=== PATIENT | female | born 1950 | race Caucasian/White ===

== ENCOUNTER 2018-11-20 20:02 | Inpatient (IN) ==
[2018-11-20] MEDS ORDERED: *HR* Adenosine 6 MG/2 ML VIAL IVP ONE (20:18)
[2018-11-20 20:39] LABS: Basophils # 0.1 K/mcL (0.0-0.2); Basophils % 0.7 %; Eosinophils # 0.4 K/mcL (0.0-0.6); Eosinophils % 4.8 %; Hematocrit 40.7 % (35.3-44.9); Hemoglobin 13.3 g/dL (11.5-15.4); Immature Granulocytes % 0.2 % (0-4); Lymphocytes # 2.6 K/mcL (0.6-4.6); Mean Corpuscular HGB Conc 32.7 g/dL (31.6-35.5); Mean Corpuscular Hemoglobin 29.3 pg (28.0-33.3); Mean Corpuscular Volume 89.6 fL (83.0-100.0); Monocytes # 0.5 K/mcL (0.0-1.3); Monocytes % 6.1 %; Platelet Count 302 K/mcL (140-400); Red Blood Count 4.54 M/mcL (3.82-4.97); Red Cell Distribution Width 12.9 % (11.5-14.5); Segmented Neutrophils % 58.2 %
[2018-11-20 20:46] LABS: Prothrombin Time 10.7 Seconds (9.4-12.1)
[2018-11-20 20:49] LABS: Activated Partial Thrombo Time 34.5 Seconds (26.0-36.0)
[2018-11-20 21:02] LABS: BUN/Creatinine Ratio 42 (6-26); Blood Urea Nitrogen 27 mg/dL (8-23); Calcium 9.8 mg/dL (8.6-10.3); Carbon Dioxide 25 mEq/L (23-29); Chloride 104 mEq/L (98-107); Glucose 189 mg/dL (70-105); Osmolality,Calculated 298 (280-300); Potassium 3.4 mEq/L (3.5-5.1); Sodium 139 mEq/L (136-145); Troponin I < 0.03 ng/mL (< 0.04); eGFR For Non-African Americans > 60 (> 60)
--- NOTE | 2018-11-20 21:08 | Emergency Department Note ---
Disposition Clinical Impression: New onset atrial fibrillation, Atrial fibrillation with RVR Disposition: Admitted As Inpatient Condition: Good Referrals: Lissette Palacio MD [Primary Care Provider] - Forms: ED Satisfaction Letter Time of Disposition: 21:51 Arrhythmia/Palpitations HPI - General Chief Complaint: ED Arrhythmia/Palpitations Stated Complaint: high bp elevated pulse Time Seen by Provider: 11/20/18 20:17 Source: EMS Limitations: no limitations - History of Present Illness HPI Narrative: Patient is a 68-year-old female presents to the emergency department with a chief complaint of palpitations. He reports that this evening she was sitting down at home after picking up some Gis[employer]'s patient states while sitting there she noticed that her heart started beating extremely rapidly. Patient states felt a little tightness in her chest when this was going on but denies specific chest pain. Patient reports she has no prior history of dysrhythmia or intrafibrillation before in the past. Pt Subjective Complaint: rapid heart beat - Related Data Home Medications Medication Instructions Recorded Confirmed Aspirin [Lo-Dose Aspirin EC] 81 mg PO DAILY 11/20/18 11/20/18 Atorvastatin Calcium [Lipitor] 20 mg PO HS 11/20/18 11/20/18 Metoprolol Succinate 25 mg PO QAM 11/20/18 11/20/18 Metoprolol Succinate [Toprol Xl] 12.5 mg PO QPM 11/20/18 11/20/18 Allergies Allergy/AdvReac Type Severity Reaction Status Date / Time itraconazole [From Sporanox] Allergy Rash Verified 11/20/18 20:07 All systems ED: reviewed and negative except as stated. Past Medical History - Past Medical History Attestation: Yes The following information was validated with the patient. Medical history: Reports: hyperlipidemia, hypertension Psychiatric history: Reports: anxiety, depression - Social History Smoking Status: Never smoker Smokeless Tobacco Status: No Alcohol use: Reports: none Drug use: Reports: none Physical Exam General: Conversant and pleasant interactive and nontoxic. Head: Normocephalic/atraumatic Eyes:PERRLA, EOMI, no conjunctivitis Nares: Without d/c. Ears: No erythema or d/c noted. Oralpharnyx: P&MMM noted, Neck: Supple, no JVD or SELF RISING FLOUR MIXER noted. Cardovascular: Irregularly irregular rhythm that is tachycardic without murmur, brisk capillary refill, no peripheral edema. Lungs: Clear to ascultation bilaterally, non-labored Abd: Soft nontender, Non Distended, no guarding, no rebound. : Defered Extremities: moves all extremities equally Neuro: AOx3, no obvious gross neuro deficit Psych: Normal Affect Derm: No rash noted - General Limitations: no limitations General appearance: alert Course Course Narrative: Patient's heart rate is much better controlled on the Cardizem drip Vital Signs O2 Sat by Pulse Oximetry 98 11/20/18 20:08 Temperature 98.9 F 11/20/18 20:32 Pulse Rate 99 11/20/18 20:40 Respiratory Rate 18 11/20/18 20:40 Blood Pressure 126/81 11/20/18 20:40 O2 Sat by Pulse Oximetry 97 11/20/18 20:40 Oxygen Delivery Oxygen Delivery Room Air Arrhythmia/Palpitations - Lab Data Result diagrams: 11/20/18 20:25 11/20/18 20:25 Lab Results 11/20/18 11/20/18 11/20/18 Range/Units 20:25 20:25 20:25 WBC 8.6 (4.3-11.1) K/mcL RBC 4.54 (3.82-4.97) M/mcL Hgb 13.3 (11.5-15.4) g/dL Hct 40.7 (35.3-44.9) % MCV 89.6 (83.0-100.0) fL MCH 29.3 (28.0-33.3) pg MCHC 32.7 (31.6-35.5) g/dL RDW 12.9 (11.5-14.5) % Plt Count 302 (140-400) K/mcL MPV 9.0 L (9.4-12.4) fL Immature Gran % 0.2 (0-4) % Seg Neutrophils % 58.2 % Lymphocytes % 30.0 % Monocytes % 6.1 % Eosinophils % 4.8 % Basophils % 0.7 % Neutrophils # 5.0 (1.6-8.9) K/mcL Lymphocytes # 2.6 (0.6-4.6) K/mcL Monocytes # 0.5 (0.0-1.3) K/mcL Eosinophils # 0.4 (0.0-0.6) K/mcL Basophils # 0.1 (0.0-0.2) K/mcL PT 10.7 (9.4-12.1) Seconds INR 1.0 APTT 34.5 (26.0-36.0) Seconds Sodium 139 (136-145) mEq/L Potassium 3.4 L (3.5-5.1) mEq/L Chloride 104 (98-107) mEq/L Carbon Dioxide 25 (23-29) mEq/L BUN 27 H (8-23) mg/dL Creatinine 0.65 (0.60-1.20) mg/dL Est GFR ( Amer) > 60 (> 60) Est GFR (Non-Af Amer) > 60 (> 60) BUN/Creatinine Ratio 42 H (6-26) Glucose 189 H (70-105) mg/dL Calculated Osmolality 298 (280-300) Calcium 9.8 (8.6-10.3) mg/dL Magnesium 2.0 (1.6-2.6) mg/dL Troponin I < 0.03 (< 0.04) ng/mL TSH 0.937 (0.340-5.600) mcIU/mL Critical Care Time Critical Care Time: Yes Total Critical Care Time: 30 Attestation: The high probability of a clinically significant, sudden or life threatening deterioration of the cardiovascular system(s) required my full and direct attention, intervention and personal management. The aggregate critical care time was 30 minutes. This time is in addition to time spent performing reported procedures but includes the following: Management of heart rate with Cardizem drip
[2018-11-20 21:16] LABS: Thyroid Stimulating Hormone 0.937 mcIU/mL (0.340-5.600)
--- NOTE | 2018-11-20 22:58 | Internal Med History&Physical ---
Date of Encounter: 11/20/18 Time of Encounter: 22:58 Internal Medicine - H&P: HPI Chief complaint: Palpitations Admitted From: Home Plans for Post Hospital Care: Home History of present illness: Ms. Grant is a 68 year old female patient with a history of hypertension who presented to the ER with complaints of palpitations that began suddenly when she was at [facility] And reports that she has had episodes of palpitations intermittently recently but these usually subsided quickly. Her current episode did not subside and so she came to the ER. She denies any dizziness or lightheadedness. No chest pain. No fevers or chills reported recently. No prior cardiac history. No history of diabetes or kidney disease. No prior history of any heart rhythm problems. Past Med Surg Social Fam HX - Past Medical History Attestation: Yes The following information was validated with the patient. Source: patient Medical history: hyperlipidemia, hypertension Psychiatric history: anxiety - Past Surgical History Surgical History: cataract - Social History Smoking Status: Never smoker Smokeless Tobacco Status: No Alcohol use: none Drug use: none - Family History Mother Hx Family Cardiac Disorders: Yes (HTN,) Hx Family Respiratory Disorders: Yes (Emphysema) Father Hx Family Cardiac Disorders: Yes ([place]) Brother Hx Family Cardiac Disorders: Yes (CHF) Hx Family Endocrine Disorder: Yes (DM) Internal Medicine - H&P: Meds Aspirin [Lo-Dose Aspirin EC] 81 mg PO DAILY 11/20/18 [History] Atorvastatin Calcium [Lipitor] 20 mg PO HS 11/20/18 [History] Metoprolol Succinate 25 mg PO QAM 11/20/18 [History] Metoprolol Succinate [Toprol Xl] 12.5 mg PO QPM 11/20/18 [History] Allergy/AdvReac Type Severity Reaction Status Date / Time itraconazole [From Sporanox] Allergy Rash Verified 11/20/18 20:07 All Systems PM: A 10-system review of systems was performed and is negative for pertinent findings except as documented above in the HPI. - Constitutional Constitutional: no chills, no fever(s), no night sweats - EENT Eyes: no change in vision, no discharge, no pain, no photophobia Ears: no ear discharge, no ear pain, no tinnitus Nose, mouth and throat: no dysphagia, no nasal discharge, no neck pain, no sore throat - Cardiovascular Cardiovascular ROS IM: palpitations, no chest pain, no diaphoresis, no dyspnea, no lightheadedness, no syncope - Respiratory Respiratory: no cough, no dyspnea, no wheezing, no excessive phlegm production - Gastrointestinal Gastrointestinal: no abdominal pain, no diarrhea, no hematemesis, no hematochezia, no melena, no nausea, no vomiting - Genitourinary Genitourinary: no change in urinary stream, no dysuria, no flank pain, no hematuria - Musculoskeletal Musculoskeletal ROS IM: no numbness, no tingling - Integumentary Integumentary IM: no rash, no unusual bruising - Neurological Neurological ROS: no confusion, no convulsions, no focal weakness, no numbness, no tingling, no tremor(s) - Hematologic/Lymphatic Hematologic/Lymphatic: no easy bruising - Constitutional Vitals: Temp Pulse Resp BP Pulse Ox 98.1 F 117 18 136/87 95 11/20/18 22:31 11/20/18 22:31 11/20/18 22:31 11/20/18 22:31 11/20/18 22:31 General appearance: Present: cooperative, mild distress, A&O X 3, pleasant, answers questions appropriately Exam: General: Patient is alert, mild distress, oriented x 3 Head: atraumatic, normocephalic, ENT: Mucous membranes moist Eye: normal appearance, PERRL, no scleral icterus, no conjunctival injection Neck: normal inspection, trachea midline, full ROM, no carotid bruits Chest: normal inspection, symmetric chest rise Respiratory: Good respiratory effort. Normal breath sounds. No wheezing or crackles. Cardiovascular: Irregularly irregular rhythm, tachycardia s1 and s2 normal No clicks, rubs, gallops, or murmurs. No pedal edema Abdomen: Abdomen is soft, nontender. Bowel sounds are present Musculoskeletal: Spontaneously moving all extremities Skin: warm, dry, intact. Neuro: Alert oriented x 3 normal cranial nerves, no focal deficits Psych: Patient's affect is normal Internal Med - H&P Results - Labs CBC & Chem 7: 11/20/18 20:25 11/20/18 20:25 Labs: Short CBC 11/20/18 Range/Units 20:25 WBC 8.6 (4.3-11.1) K/mcL Hgb 13.3 (11.5-15.4) g/dL Hct 40.7 (35.3-44.9) % Plt Count 302 (140-400) K/mcL Neutrophils # 5.0 (1.6-8.9) K/mcL BMP 11/20/18 20:25 Sodium 139 Potassium 3.4 L Chloride 104 Carbon Dioxide 25 BUN 27 H Creatinine 0.65 Glucose 189 H Calcium 9.8 Cardiac Enzymes 11/20/18 Range/Units 20:25 Troponin I < 0.03 (< 0.04) ng/mL - EKG Data -: EKG Interpreted by Myself - EKG Data Prior EKG available for review: yes When compared to previous EKG: there are significant changes EKG comments: 11/20/18 23:03 A. fib with RVR - Impressions ITS Impressions Chest X-Ray 11/20/18 20:18 IMPRESSION: Stable portable study. D/ / Shahla Moore Cha, MD / Shahla Moore Cha, MD Interpreting Provider: Shahla Moore Cha, MD - Assessment and Plan (1) Atrial fibrillation with RVR Current Visit: Yes Status: Acute Assessment and plan: New onset atrial fibrillation. Reviewed prior EKGs. She is always been in sinus rhythm. Monitor with telemetry. IV Cardizem drip. She has a CHADS 2 VASC score of 3 and would benefit from anticoagulation. Has bled score of 2. Will start patient on Lovenox. Consider starting direct oral anticoagulant after checking prices with her insurance. Will obtain 2-D echocardiogram. High risk for complications. (2) Essential hypertension Current Visit: Yes Status: Chronic Assessment and plan: Monitor blood pressure. Resume Toprol (3) Hyperlipidemia Current Visit: Yes Status: Acute Assessment and plan: Continue statin. Qualifiers: Hyperlipidemia type: mixed hyperlipidemia Qualified Code(s): E78.2 - Mixed hyperlipidemia - Time Spent With Patient Total time spent is greater than 50% in coordination of care (as documented) at patient's floor/unit and/or counseling patient:
[2018-11-20] MEDS: Metoprolol XL (24 HR) Succ 25 MG TAB.ER.24H PO SCH (23:07)
[2018-11-20] MEDS ORDERED: Potassium Effervescent 25 MEQ TABLET.EFF PO ONE (23:24)
[2018-11-20] MEDS ORDERED: Naloxone 0.4 MG/ML INJ IVP PRN (23:28)
[2018-11-21] MEDS: *HR* Enoxaparin 60 MG/0.6 ML SYRINGE SQ SCH ×2 (00:06→12:35)
[2018-11-21 02:29] LABS: Basophils % 0.4 %; Eosinophils % 0.3 %; Hematocrit 42.2 % (35.3-44.9); Hemoglobin 13.9 g/dL (11.5-15.4); Immature Granulocytes % 0.2 % (0-4); Lymphocytes # 1.4 K/mcL (0.6-4.6); Lymphocytes % 13.5 %; Mean Corpuscular HGB Conc 32.9 g/dL (31.6-35.5); Mean Corpuscular Hemoglobin 29.3 pg (28.0-33.3); Mean Platelet Volume 9.2 fL (9.4-12.4); Monocytes # 0.5 K/mcL (0.0-1.3); Monocytes % 4.9 %; Neutrophils # 8.2 K/mcL (1.6-8.9); Platelet Count 341 K/mcL (140-400); Red Blood Count 4.74 M/mcL (3.82-4.97); Segmented Neutrophils % 80.7 %
[2018-11-21 03:00] LABS: BUN/Creatinine Ratio 37 (6-26); Blood Urea Nitrogen 20 mg/dL (8-23); Calcium 9.8 mg/dL (8.6-10.3); Carbon Dioxide 27 mEq/L (23-29); Chloride 107 mEq/L (98-107); Glucose 140 mg/dL (70-105); Osmolality,Calculated 295 (280-300); Potassium 4.6 mEq/L (3.5-5.1); Sodium 140 mEq/L (136-145); eGFR For Non-African Americans > 60 (> 60)
[2018-11-21] MEDS ORDERED: Metoprolol XL (24 HR) Succ 25 MG TAB.ER.24H PO SCH (09:00)
[2018-11-21] MEDS: Aspirin Enteric Coated 81 MG Tablet PO SCH (09:37)
--- NOTE | 2018-11-21 11:38 | Electrocardiograph Report ---
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
--- NOTE | 2018-11-21 14:42 | Internal Med Progress Note ---
Hospitalist Progress Note - Encounter Date of Encounter: 11/21/18 Time of Encounter: 14:33 - Subjective Interval History: Patient was seen and examined at bedside currently in atrial fibrillation rate control this time. Awaiting cardiac echo-continue with Lovenox for now discuss possible anticoagulation depending on echo results - Exam Vitals: Temp Pulse Resp BP Pulse Ox 98.7 F 97 19 120/75 97 11/21/18 11:06 11/21/18 11:06 11/21/18 11:06 11/21/18 11:06 11/21/18 11:06 Exam: General: Patient is alert, mild distress, oriented x 3 Head: atraumatic, normocephalic, ENT: Mucous membranes moist Eye: normal appearance, PERRL, no scleral icterus, no conjunctival injection Neck: normal inspection, trachea midline, full ROM, no carotid bruits Chest: normal inspection, symmetric chest rise Respiratory: Good respiratory effort. Normal breath sounds. No wheezing or crackles. Cardiovascular: Irregularly irregular rhythm, s1 and s2 normal No clicks, rubs, gallops, or murmurs. No pedal edema Abdomen: Abdomen is soft, nontender. Bowel sounds are present Musculoskeletal: Spontaneously moving all extremities Skin: warm, dry, intact. Neuro: Alert oriented x 3 normal cranial nerves, no focal deficits Psych: Patient's affect is normal - Assessment and Plan (1) Atrial fibrillation with RVR Current Visit: Yes Status: Acute Assessment and Plan: New onset atrial fibrillation. Reviewed prior EKGs. She is always been in sinus rhythm. Monitor with telemetry. She continued tachycardic overnight currently rate has improved to 80s continue IV Cardizem drip. She has a CHADS 2 VASC score of 3 and would benefit from anticoagulation. Has bled score of 2. Will start patient on Lovenox. Consider starting direct oral anticoagulant after checking prices with her insurance. Will obtain 2-D echocardiogram. High risk for complications. (2) Essential hypertension Current Visit: Yes Status: Chronic Assessment and Plan: Monitor blood pressure. Resume Toprol (3) Hyperlipidemia Current Visit: Yes Status: Acute Assessment and Plan: Continue statin. - Time Spent with Patient Total time spent is greater than 50% in coordination of care (as documented) at patient's floor/unit and/or counseling patient: Internal Medicine: Result - Labs CBC & Chem 7: 11/21/18 01:54 11/21/18 01:54 Labs: Short CBC 11/20/18 11/21/18 Range/Units 20:25 01:54 WBC 8.6 10.1 (4.3-11.1) K/mcL Hgb 13.3 13.9 (11.5-15.4) g/dL Hct 40.7 42.2 (35.3-44.9) % Plt Count 302 341 (140-400) K/mcL Neutrophils # 5.0 8.2 (1.6-8.9) K/mcL BMP 11/20/18 11/21/18 20:25 01:54 Sodium 139 140 Potassium 3.4 L 4.6 D Chloride 104 107 Carbon Dioxide 25 27 BUN 27 H 20 Creatinine 0.65 0.54 L Glucose 189 H 140 H Calcium 9.8 9.8 Cardiac Enzymes 11/20/18 11/21/18 11/21/18 Range/Units 20:25 01:54 08:38 Troponin I < 0.03 0.03 0.03 (< 0.04) ng/mL - ABG Interpretation ABG results: PT/INR, D-dimer PT 10.7 Seconds (9.4-12.1) 11/20/18 20:25 - Impressions Impressions Chest X-Ray 11/20/18 20:18 IMPRESSION: Stable portable study. D/ / Shahla Moore Cha, MD / Shahla Moore Cha, MD Interpreting Provider: Shahla Moore Cha, MD Consult Discharge Plan - Plan Referrals: Lissette Palacio MD [Primary Care Provider] - (3) Hyperlipidemia Qualifiers: Hyperlipidemia type: mixed hyperlipidemia Qualified Code(s): E78.2 - Mixed hyperlipidemia
--- NOTE | 2018-11-21 17:46 | Event Note ---
Date of Encounter: 11/21/18 Time of Encounter: 17:44 5 per nursing staff that patient has converted to sinus rhythm rate 60s, EKG was obtained did review EKG with Dr. Rolle concerns for when necessary depression as well as ST upsloping. Patient denies any chest pain and troponins have been negative. Will obtain a stat troponin. Place patient on oral cardizem low dose NPO after midnight for stress test in a.m. we will consult cardiology as needed
[2018-11-21] MEDS: Metoprolol XL (24 HR) Succ 25 MG TAB.ER.24H PO SCH (18:01)
[2018-11-22] MEDS: *HR* Enoxaparin 60 MG/0.6 ML SYRINGE SQ SCH ×2 (00:08→09:55)
[2018-11-22] MEDS: Aspirin Enteric Coated 81 MG Tablet PO SCH (09:55)
[2018-11-22] MEDS: Regadenoson 0.4 MG/5 ML SYRINGE IVP ONE ×2 (09:56→11:41)
--- NOTE | 2018-11-22 10:03 | Cardiology Consult Note ---
Date of Encounter: 11/22/18 Time of Encounter: 09:53 Assessment and Plan (1) New onset atrial fibrillation Current Visit: Yes Status: Acute Presented with atrial fibrillation with RVR. Onset unknown. Reports h/o palpitations for years. Converted to NSR on cardizem gtt. TTE shows EF 65-70%, severe biatrial enlargement. Mild LVOT. Mild mitral regurgitation. Mild to moderate tricuspid regurgitation. TSH was normal. Stress test ordered and pending. Agree with cardizem. Convert to long acting at discharge- Cardizem CD 120 mg daily. 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 AC with coumadin or NOAC discussed. Patient agrees. Eliquis sent to pharmacy for iyer check. Discussion w patient/family: The assessment and plan as outlined above was discussed with the patient and/or family members who expressed understanding and agreement. All questions were answered. Thank you for involving us in the care of your patient. Please call with any questions. History of Present Illness Consult date: 11/22/18 Requesting physician: Tere Ny Consult reason: new atrial fibrillation, severe bi-atrial enlargement. Chief complaint: palpitations, SOB History of present illness: Ms. Grant is a 68 year old female with past medical history significant for HTN and HLD who presents with the c/o palpitations and SOB yesterday. states that she felt brief palpitations on her left side for years. Yesterday she had a sudden onset and became SOB. She noted her HR was elevated at that time. Denies chest pain. Denies orthopnea, PND, or edema. She was found to have atrial fibrillation with RVR. HR 150's. She was treated with cardizem gtt and converted to NSR overnight. Currently without complaint. Past Med Surg Social Fam HX - Past Medical History Medical history: hyperlipidemia, hypertension Psychiatric history: anxiety - Past Surgical History Surgical History: cataract - Social History Smoking Status: Never smoker Smokeless Tobacco Status: No Alcohol use: none Drug use: none - Family History Mother Hx Family Cardiac Disorders: Yes (HTN,) Hx Family Respiratory Disorders: Yes (Emphysema) Father Hx Family Cardiac Disorders: Yes ([place]) Brother Hx Family Cardiac Disorders: Yes (CHF) Hx Family Endocrine Disorder: Yes (DM) Medications and Allergies Aspirin [Lo-Dose Aspirin EC] 81 mg PO DAILY 11/20/18 [History] Atorvastatin Calcium [Lipitor] 20 mg PO HS 11/20/18 [History] Metoprolol Succinate 25 mg PO QAM 11/20/18 [History] Metoprolol Succinate [Toprol Xl] 12.5 mg PO QPM 11/20/18 [History] HydrOXYzine 10 mg PO HS 11/21/18 [History] Apixaban [Eliquis] 5 mg PO BID #60 tablet 11/22/18 [Rx] Allergy/AdvReac Type Severity Reaction Status Date / Time itraconazole [From Sporanox] Allergy Rash Verified 11/20/18 20:07 All Systems Review: The remainder of the systems were reviewed and are negative Physical Examination Vital Signs, Last 4 Hours Temp Pulse Resp BP Pulse Ox 11/22/18 06:21 97.9 F 70 14 135/80 99 General: Conversant, No Apparent Distress HEENT: Atraumatic, Normocephaly, Mucus Membranes Moist Neck: No JVD, Normal carotid pulses Cardiac: Reg Rate and Rhythm, Normal S1 and S2, No Murmur Lungs: Normal Breath Sounds, No Wheeze, Rales, Rhonchi Neuro: Alert and responsive, No focal deficits noted Abdomen: Soft, Non-Tender Skin: No rashes noted on visualized skin Musculoskeletal: No Chest Wall Tenderness Extremities: No Clubbing, No Cyanosis, No Edema, Normal Pulses Results 11/21/18 01:54 11/21/18 01:54 Lab Results 11/21/18 18:53 Troponin I < 0.03 - Imaging and Cardiology Cardiac cath: report reviewed - EKG Interpretation EKG results cardiology: personally reviewed Consult Discharge Plan - Plan Referrals: Lissette Palacio MD [Primary Care Provider] - 11/25/18 11:15 am ()
--- NOTE | 2018-11-22 10:48 | Electrocardiograph Report ---
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
[2018-11-22 12:09] VITALS: BP 160/76
--- NOTE | 2018-11-22 13:40 | Discharge Summary ---
- NOTES TO OUTPATIENT PROVIDER Notes to Outpatient Provider: New Onset of atrial fibrillation-cardiac echo shows atrial enlargement underwent a stress test which was negative-we will place on Cardizem CD 120mg daily Eliquis Orders not resulted at time of discharge: Pending orders 11/21/18 18:28 NM karma perf SPECT multi [NM] Routine Date of Encounter: 11/22/18 Time of Encounter: 13:37 - Discharge Diagnosis (1) Atrial fibrillation with RVR Priority: Primary Status: Acute (2) Essential hypertension Priority: Secondary Status: Chronic (3) Hyperlipidemia Priority: Secondary Status: Acute Qualifiers: Hyperlipidemia type: mixed hyperlipidemia Qualified Code(s): E78.2 - Mixed hyperlipidemia Hospital course: Ms. Grant is a 68 year old female past medical history for hypertension hyperlipidemia presented to [facility] ED with complaints of palpitations and shortness of breath that started yesterday. She has been experiencing brief episodes of palpitations off and on her left side for many years. However yesterday she had a sudden onset palpitations with shortness of breath which did not resolve. In the ER she was found to have an elevated heart rate and was in A. fib RVR with heart rate 150s. She was placed on weight-based Lovenox for a check regulation. She was treated with Cardizem drip and was converted to normal sinus rhythm. Transition to oral Cardizem. Cardiac echo was completed which did show EF of 65-70% with severe biatrial enlargement mild LVOT mild mitral regurgitation and [id number] tricuspid regurgitation. TSH was normal. She did undergo a stress test which was negative for any ischemia or infarct. Cardiology was consulted who recommended long acting Cardizem on discharge. Patient's had asked is 3 anticoagulation was recommended patient did agree with [facility] obtained medications from pharmacy. Currently patient hemodynamically stable and is in sinus rhythm. Advised patient to follow with primary care provider as well as cardiology as outpatient. She was given a prescription for Cardizem CD. She is ready for discharge at this time. - Time Spent with Patient Total time spent providing and/or coordinating discharge services: - Discharge Medications Prescriptions: New Apixaban [Eliquis] 5 mg PO BID #60 tablet Diltiazem CD (24hr) [Cardizem CD] 120 mg PO DAILY #30 cap.er.24h Continued Aspirin [Lo-Dose Aspirin EC] 81 mg PO DAILY Atorvastatin Calcium [Lipitor] 20 mg PO HS HydrOXYzine 10 mg PO HS Discontinued Metoprolol Succinate 25 mg PO QAM Metoprolol Succinate [Toprol Xl] 12.5 mg PO QPM Home Medications: Aspirin [Lo-Dose Aspirin EC] 81 mg PO DAILY 11/20/18 [History] Atorvastatin Calcium [Lipitor] 20 mg PO HS 11/20/18 [History] HydrOXYzine 10 mg PO HS 11/21/18 [History] Apixaban [Eliquis] 5 mg PO BID #60 tablet 11/22/18 [Rx] Diltiazem CD (24hr) [Cardizem CD] 120 mg PO DAILY #30 cap.er.24h 11/22/18 [Rx] Allergies/Adverse Reactions: Allergy/AdvReac Type Severity Reaction Status Date / Time itraconazole [From Sporanox] Allergy Rash Verified 11/20/18 20:07 Date of admission: 11/21/18 17:03 Primary care physician: Lissette Palacio Consults: 11/21/18 18:25 Consult to Cardiology [CONS] Routine Comment: Consulting Provider: Cardiology [place] Reason for Consult: new onset AFIB - biatrial enlargment Time Notified: 18:26 Call Completed: Yes Discharging clinician: Tere Ny Anticipated date of discharge: 11/22/18 - Constitutional Vitals: Temp Pulse Resp BP Pulse Ox 97.7 F 71 16 160/76 100 11/22/18 11:51 11/22/18 11:51 11/22/18 11:51 11/22/18 11:51 11/22/18 11:51 General appearance: Present: cooperative, mild distress, A&O X 3, pleasant, answers questions appropriately Exam: General: Patient is alert, mild distress, oriented x 3 Head: atraumatic, normocephalic, ENT: Mucous membranes moist Eye: normal appearance, PERRL, no scleral icterus, no conjunctival injection Neck: normal inspection, trachea midline, full ROM, no carotid bruits Chest: normal inspection, symmetric chest rise Respiratory: Good respiratory effort. Normal breath sounds. No wheezing or crackles. Cardiovascular: Regular rhythm, s1 and s2 normal No clicks, rubs, gallops, or murmurs. No pedal edema Abdomen: Abdomen is soft, nontender. Bowel sounds are present Musculoskeletal: Spontaneously moving all extremities Skin: warm, dry, intact. Neuro: Alert oriented x 3 normal cranial nerves, no focal deficits Psych: Patient's affect is normal - Patient Status Disposition: Home, Self-Care Condition: Good Functional capacity at discharge: independent ambulation Overall status at discharge: patient is back to baseline - Discharge Instructions Follow Up With: Lissette Palacio MD [Primary Care Provider] - 11/25/18 11:15 am () - Diet and Activity Activity: increase activity as tolerated Diet: advance to your usual diet
[2018-11-22] MEDS ORDERED: Apixaban 5 MG TABLET PO SCH (21:00)
== END 2018-11-22 15:27 | disposition home or self-care (01) | DRG 310 ==
LOC: 3BNU 20:02 → EMEROOARM 20:02 → 3BNU 22:14
PROVIDERS: ADMIT Internal Medicine; ATTEND Internal Medicine